=== PATIENT | female | born 1950 | race Caucasian/White ===

== ENCOUNTER 2018-03-09 23:01 | Inpatient (IN) | payer MEDICAID, OTHER ==
[2018-03-09] MEDS: ACETAMINOPHEN 325 MG TAB PO
[2018-03-09] MEDS: IPRATROPIUM (NEB) 0.5 MG/2.5 ML AMP NEB (23:29)
[2018-03-09] MEDS: ALBUTEROL 0.083% (NEB) 2.5 MG/3 ML AMP NEB (23:29)
[2018-03-09 23:43] LABS: AADO2 Arterial 231.5 mmHg (7.0-24.0); Allen Test ACCEPTAB; Arterial Base Excess 0 mmol/L (-3.0-3); Arterial Blood Gas Oxygen Sat 93.9 mmHG (95.0-98.0); Arterial COHb 0.6 % (0.0-3.0); Arterial HCO3 27.9 mmol/L (22.0-26.0); Arterial MetHb 0.4 % (0.0-1.5); Arterial Total Hemglobin 14.2 g/dl (12.0-18.0); Arterial pCO2 59.7 mmhg (35-45); MODE MASK - SIMPLE; Site Left Radial
[2018-03-09 23:55] LABS: ADD UMIC YES; UR ASCORBIC ACID NEGATIVE (NEGATIVE); UR BILIRUBIN (Dip) NEGATIVE (NEGATIVE); UR BLOOD (Dip) NEGATIVE (NEGATIVE); UR CLARITY CLEAR (CLEAR); UR COLOR COLORLESS (YELLOW); UR GLUCOSE (Dip) 3+ mg/dL (NEGATIVE); UR KETONES (Dip) NEGATIVE (NEGATIVE); UR LEUKOCYTE ESTERASE (Dip) NEGATIVE Leu/ul (NEGATIVE); UR NITRITE (Dip) NEGATIVE (NEGATIVE); UR RBC 0 /HPF (0-5); UR SPECIFIC GRAVITY (Dip) 1.006 (1.003-1.030); UR TOTAL PROTEIN (Dip) 2+ mg/dl (NEGATIVE); UR UROBILINOGEN (Dip) NEGATIVE (NEGATIVE); UR WBC 1 /HPF (0-5)
[2018-03-09 23:59] LABS: ADD MAN DIFF? NO
[2018-03-10 00:02] LABS: WHITE BLOOD COUNT 17.2 10^3/ul (4.8-10.8)
[2018-03-10 00:02] LABS: BASOPHIL # 0.1 10^3/ul (0.0-0.1); BASOPHILS % 0.3 % (0.0-2.0); EOSINOPHILS # 0.2 10^3/ul (0.0-0.5); EOSINOPHILS % 0.9 % (0.0-7.0); HEMATOCRIT 41.2 % (37.0-47.0); HEMOGLOBIN 13.5 g/dl (12.0-16.0); LYMPHOCYTES # 3.2 10^3/ul (0.8-2.9); LYMPHOCYTES % 18.4 % (15.0-51.0); MEAN CORPUSCULAR HEMOGLOBIN 30.9 pg (29.0-33.0); MEAN CORPUSCULAR HGB CONC 32.8 g/dl (32.0-37.0); MEAN CORPUSCULAR VOLUME 94.3 fl (82.0-101.0); MEAN PLATELET VOLUME 10.5 fl (7.4-10.4); MONOCYTE # 0.7 10^3/ul (0.3-0.9); MONOCYTES % 3.9 % (0.0-11.0); NEUTROPHILS % 75.7 % (39.0-77.0); PLATELET COUNT 288 10^3/UL (140-415); RED BLOOD COUNT 4.37 10^6/ul (4.20-5.40); RED CELL DISTRIBUTION WIDTH 14.5 % (11.5-14.5)
[2018-03-10 00:21] LABS: ALANINE AMINOTRANSFERASE 118 IU/L (13-69); ALBUMIN 4.5 g/dl (3.3-4.9); ALBUMIN/GLOBULIN RATIO 1.09; ALKALINE PHOSPHATASE 128 IU/L (42-121); ANION GAP 13 (8-16); ASPARTATE AMINO TRANSFERASE 121 IU/L (15-46); BILIRUBIN,INDIRECT 0.8 mg/dl (0-1.1); BILIRUBIN,TOTAL 0.8 mg/dl (0.2-1.3); BLOOD UREA NITROGEN 17 mg/dl (7-20); CALCIUM 8.8 mg/dl (8.4-10.2); CARBON DIOXIDE 36 mmol/L (21-31); CHLORIDE 101 mmol/L (97-110); CREATININE 0.69 mg/dl (0.44-1.00); GLUCOSE 232 mg/dl (70-220); LIPASE 49 U/L (23-300); POTASSIUM 3.7 mmol/L (3.5-5.1); SODIUM 146 mmol/L (135-144); TOTAL PROTEIN 8.6 g/dl (6.1-8.1)
[2018-03-10 00:29] LABS: INR 0.89; PARTIAL THROMBOPLASTIN TIME 30.6 Sec (25.0-35.0); PROTIME 12.1 Sec (11.9-14.9); PT RATIO 0.9
[2018-03-10 00:32] LABS: TROPONIN-I < 0.012 ng/ml (0.000-0.120)
[2018-03-10] MEDS: CEFEPIME 2GM/50 ML (PMX) 50 ML IVPB (01:16)
[2018-03-10] MEDS: SODIUM CHLORIDE 0.9% 1L BAG IV* (01:17)
[2018-03-10] MEDS: FUROSEMIDE 40 MG INJ IV ×2 (01:27→08:25)
[2018-03-10] MEDS: VANCOMYCIN 1 GM (PMX) 250 ML IVPB (02:07)
[2018-03-10] MEDS ORDERED: NITROGLYCERIN (SL) 0.4 MG TAB SL (06:00)
[2018-03-10] MEDS ORDERED: GLUCOSE GEL 15 GRAM TUBE BUCCAL (06:00)
[2018-03-10] MEDS ORDERED: GLUCOSE GEL 15 GRAM TUBE PO ×2 (06:00)
[2018-03-10] MEDS ORDERED: morphine 2 MG INJ IV (06:00)
[2018-03-10] MEDS ORDERED: NACL 0.9% 3 ML SYG IV (06:00)
[2018-03-10] MEDS ORDERED: ALBUTEROL/IPRATROPIUM (NEB) 3 ML AMP HHN (06:00)
[2018-03-10] MEDS ORDERED: GLUCAGON 1 MG INJ IM (06:00)
[2018-03-10] MEDS ORDERED: DEXTROSE 50% 50 ML SYRINGE IV ×2 (06:00)
[2018-03-10 06:17] LABS: LACTIC ACID 1.1 mmol/L (0.5-2.0)
[2018-03-10 06:32] LABS: ADD MAN DIFF? NO
[2018-03-10 06:34] LABS: BASOPHILS % 0.3 % (0.0-2.0); HEMATOCRIT 32.5 % (37.0-47.0); HEMOGLOBIN 10.6 g/dl (12.0-16.0); LYMPHOCYTES # 0.8 10^3/ul (0.8-2.9); LYMPHOCYTES % 6.6 % (15.0-51.0); MEAN CORPUSCULAR HEMOGLOBIN 30.8 pg (29.0-33.0); MEAN CORPUSCULAR HGB CONC 32.6 g/dl (32.0-37.0); MEAN CORPUSCULAR VOLUME 94.5 fl (82.0-101.0); MEAN PLATELET VOLUME 10.3 fl (7.4-10.4); MONOCYTE # 0.6 10^3/ul (0.3-0.9); MONOCYTES % 4.9 % (0.0-11.0); NEUTROPHIL # 10.7 10^3/ul (1.6-7.5); NEUTROPHILS % 87.7 % (39.0-77.0); PLATELET COUNT 227 10^3/UL (140-415); RED BLOOD COUNT 3.44 10^6/ul (4.20-5.40); RED CELL DISTRIBUTION WIDTH 14.6 % (11.5-14.5)
[2018-03-10 06:34] LABS: WHITE BLOOD COUNT 12.2 10^3/ul (4.8-10.8)
[2018-03-10 06:57] LABS: ALANINE AMINOTRANSFERASE 116 IU/L (13-69); ALBUMIN 3.4 g/dl (3.3-4.9); ALBUMIN/GLOBULIN RATIO 1.09; ALKALINE PHOSPHATASE 95 IU/L (42-121); ANION GAP 12 (8-16); ASPARTATE AMINO TRANSFERASE 110 IU/L (15-46); BILIRUBIN,INDIRECT 0.8 mg/dl (0-1.1); BILIRUBIN,TOTAL 0.8 mg/dl (0.2-1.3); BLOOD UREA NITROGEN 19 mg/dl (7-20); CALCIUM 7.8 mg/dl (8.4-10.2); CARBON DIOXIDE 34 mmol/L (21-31); CHLORIDE 102 mmol/L (97-110); CREATININE 0.72 mg/dl (0.44-1.00); GLUCOSE 182 mg/dl (70-220); POTASSIUM 3.4 mmol/L (3.5-5.1); SODIUM 145 mmol/L (135-144); TOTAL PROTEIN 6.5 g/dl (6.1-8.1)
[2018-03-10 07:21] LABS: HEPATITIS B SURFACE ANTIGEN NEGATIVE (NEGATIVE)
[2018-03-10 07:43] LABS: HEPATITIS C VIRAL ANTIBODY NEGATIVE (NEGATIVE)
[2018-03-10] MEDS: LEVOFLOXACIN 500MG/D5W (PMX) 100 ML IVPB (08:24)
[2018-03-10] MEDS: metFORMIN 500 MG TAB PO ×2 (08:25→19:32)
[2018-03-10] MEDS: LOSARTAN 50 MG TAB PO (08:26)
[2018-03-10] MEDS: ATENOLOL 100 MG TAB PO ×2 (08:26→10:11)
[2018-03-10] MEDS: ENOXAPARIN 40 MG/0.4 ML SYG SC (08:40)
[2018-03-10] MEDS: DICLOFENAC (EC) 25 MG TAB PO ×2 (09:14→20:52)
[2018-03-10 09:43] LABS: AADO2 Arterial 45.6 mmHg (7.0-24.0); Allen Test ACCEPTAB; Arterial Base Excess 4.9 mmol/L (-3.0-3); Arterial Blood Gas Oxygen Sat 97.1 mmHG (95.0-98.0); Arterial COHb 0.1 % (0.0-3.0); Arterial Fraction of Oxyhgb 96.7 % (93.0-99.0); Arterial HCO3 29.9 mmol/L (22.0-26.0); Arterial MetHb 0.3 % (0.0-1.5); Arterial Total Hemglobin 12.1 g/dl (12.0-18.0); Arterial pCO2 45.8 mmhg (35-45); MODE NASAL CANNULA; Site Right Radial
[2018-03-10 10:56] LABS: HEPATITIS B SURFACE ANTIBODY NEGATIVE (NEGATIVE)
[2018-03-10] MEDS: hydrALAzine 20 MG INJ IV ×2 (12:53→18:56)
[2018-03-10] MEDS: ACETAMINOPHEN 325 MG TAB PO (14:42)
[2018-03-11 07:35] LABS: ADD MAN DIFF? NO
[2018-03-11 07:40] LABS: BASOPHILS % 0.3 % (0.0-2.0); EOSINOPHILS # 0.1 10^3/ul (0.0-0.5); EOSINOPHILS % 1.3 % (0.0-7.0); HEMATOCRIT 32.3 % (37.0-47.0); HEMOGLOBIN 10.4 g/dl (12.0-16.0); LYMPHOCYTES # 1.4 10^3/ul (0.8-2.9); LYMPHOCYTES % 14.2 % (15.0-51.0); MEAN CORPUSCULAR HEMOGLOBIN 30.5 pg (29.0-33.0); MEAN CORPUSCULAR HGB CONC 32.2 g/dl (32.0-37.0); MEAN CORPUSCULAR VOLUME 94.7 fl (82.0-101.0); MEAN PLATELET VOLUME 10.6 fl (7.4-10.4); MONOCYTE # 0.4 10^3/ul (0.3-0.9); MONOCYTES % 4.4 % (0.0-11.0); NEUTROPHIL # 7.6 10^3/ul (1.6-7.5); NEUTROPHILS % 79.4 % (39.0-77.0); PLATELET COUNT 234 10^3/UL (140-415); RED BLOOD COUNT 3.41 10^6/ul (4.20-5.40); RED CELL DISTRIBUTION WIDTH 14.5 % (11.5-14.5)
[2018-03-11 07:40] LABS: WHITE BLOOD COUNT 9.5 10^3/ul (4.8-10.8)
[2018-03-11 08:49] LABS: ALANINE AMINOTRANSFERASE 88 IU/L (13-69); ALBUMIN 3.3 g/dl (3.3-4.9); ALKALINE PHOSPHATASE 86 IU/L (42-121); ANION GAP 11 (8-16); ASPARTATE AMINO TRANSFERASE 57 IU/L (15-46); BILIRUBIN,INDIRECT 1.3 mg/dl (0-1.1); BILIRUBIN,TOTAL 1.3 mg/dl (0.2-1.3); BLOOD UREA NITROGEN 26 mg/dl (7-20); CALCIUM 7.9 mg/dl (8.4-10.2); CARBON DIOXIDE 36 mmol/L (21-31); CHLORIDE 100 mmol/L (97-110); CREATININE 0.82 mg/dl (0.44-1.00); GLUCOSE 106 mg/dl (70-220); MAGNESIUM 1.7 mg/dl (1.7-2.5); POTASSIUM 3.6 mmol/L (3.5-5.1); SODIUM 143 mmol/L (135-144); TOTAL PROTEIN 6.6 g/dl (6.1-8.1)
[2018-03-11] MEDS: ATENOLOL 100 MG TAB PO (09:00)
[2018-03-11] MEDS: DICLOFENAC (EC) 25 MG TAB PO ×2 (09:00→20:32)
[2018-03-11] MEDS: LEVOFLOXACIN 500MG/D5W (PMX) 100 ML IVPB (09:20)
[2018-03-11] MEDS: metFORMIN 500 MG TAB PO ×2 (09:21→17:23)
[2018-03-11] MEDS: LOSARTAN 50 MG TAB PO (09:21)
[2018-03-11] MEDS: FUROSEMIDE 40 MG INJ IV (09:21)
[2018-03-11] MEDS: ENOXAPARIN 40 MG/0.4 ML SYG SC (09:24)
[2018-03-11] MEDS: hydrALAzine 20 MG INJ IV ×2 (13:13→22:09)
[2018-03-12 07:38] LABS: ALANINE AMINOTRANSFERASE 74 IU/L (13-69); ALBUMIN 3.8 g/dl (3.3-4.9); ALKALINE PHOSPHATASE 103 IU/L (42-121); ANION GAP 15 (8-16); ASPARTATE AMINO TRANSFERASE 56 IU/L (15-46); BILIRUBIN,INDIRECT 1.1 mg/dl (0-1.1); BILIRUBIN,TOTAL 1.1 mg/dl (0.2-1.3); BLOOD UREA NITROGEN 35 mg/dl (7-20); CALCIUM 8.4 mg/dl (8.4-10.2); CARBON DIOXIDE 34 mmol/L (21-31); CHLORIDE 96 mmol/L (97-110); CREATININE 0.87 mg/dl (0.44-1.00); GLUCOSE 115 mg/dl (70-220); SODIUM 141 mmol/L (135-144); TOTAL PROTEIN 7.6 g/dl (6.1-8.1)
[2018-03-12 08:00] LABS: CANCER ANTIGEN 19-9 9.3 U/ml (0.0-37.0)
[2018-03-12] MEDS: metFORMIN 500 MG TAB PO ×2 (08:28→17:32)
[2018-03-12] MEDS: DICLOFENAC (EC) 25 MG TAB PO ×2 (08:29→20:30)
[2018-03-12] MEDS: ATENOLOL 100 MG TAB PO (08:30)
[2018-03-12] MEDS: LEVOFLOXACIN 500MG/D5W (PMX) 100 ML IVPB (08:30)
[2018-03-12] MEDS: LOSARTAN 50 MG TAB PO (08:32)
[2018-03-12] MEDS: FUROSEMIDE 40 MG INJ IV (08:33)
[2018-03-12] MEDS: ENOXAPARIN 40 MG/0.4 ML SYG SC (08:42)
[2018-03-12 14:01] LABS: ANA SCREEN NEGATIVE (NEGATIVE)
[2018-03-12] MEDS: hydrALAzine 20 MG INJ IV ×2 (15:49→22:24)
[2018-03-12 17:47] LABS: MITOCHONDRIAL TB NEGATIVE (NEGATIVE); SMOOTH MUSCLE AB SCREEN POSITIVE (NEGATIVE); SMOOTH MUSCLE AB TITER 1:40 titer (<1:20)
[2018-03-13] MEDS: LEVOFLOXACIN 500 MG TAB PO (06:19)
[2018-03-13 07:09] LABS: ALANINE AMINOTRANSFERASE 57 IU/L (13-69); ALBUMIN 3.5 g/dl (3.3-4.9); ALKALINE PHOSPHATASE 99 IU/L (42-121); ANION GAP 10 (8-16); ASPARTATE AMINO TRANSFERASE 28 IU/L (15-46); BILIRUBIN,INDIRECT 0.7 mg/dl (0-1.1); BILIRUBIN,TOTAL 0.7 mg/dl (0.2-1.3); BLOOD UREA NITROGEN 28 mg/dl (7-20); CALCIUM 8.5 mg/dl (8.4-10.2); CARBON DIOXIDE 37 mmol/L (21-31); CHLORIDE 98 mmol/L (97-110); CREATININE 0.82 mg/dl (0.44-1.00); GLUCOSE 115 mg/dl (70-220); POTASSIUM 3.7 mmol/L (3.5-5.1); SODIUM 141 mmol/L (135-144)
[2018-03-13] MEDS: DICLOFENAC (EC) 25 MG TAB PO ×2 (08:19→20:18)
[2018-03-13] MEDS: LOSARTAN 50 MG TAB PO (08:19)
[2018-03-13] MEDS: FUROSEMIDE 40 MG INJ IV (08:20)
[2018-03-13] MEDS: metFORMIN 500 MG TAB PO ×2 (08:20→16:55)
[2018-03-13] MEDS: ATENOLOL 100 MG TAB PO (08:21)
[2018-03-13] MEDS: ENOXAPARIN 40 MG/0.4 ML SYG SC (08:27)
[2018-03-13] MEDS: AMLODIPINE 5 MG TAB PO (14:34)
[2018-03-13] MEDS: hydrALAzine 20 MG INJ IV (16:56)
[2018-03-14] MEDS: LEVOFLOXACIN 500 MG TAB PO (06:38)
[2018-03-14 06:58] LABS: ALANINE AMINOTRANSFERASE 55 IU/L (13-69); ALBUMIN 3.5 g/dl (3.3-4.9); ALKALINE PHOSPHATASE 95 IU/L (42-121); ANION GAP 14 (8-16); ASPARTATE AMINO TRANSFERASE 27 IU/L (15-46); BILIRUBIN,INDIRECT 0.4 mg/dl (0-1.1); BILIRUBIN,TOTAL 0.4 mg/dl (0.2-1.3); BLOOD UREA NITROGEN 21 mg/dl (7-20); CALCIUM 8.9 mg/dl (8.4-10.2); CARBON DIOXIDE 34 mmol/L (21-31); CHLORIDE 100 mmol/L (97-110); CREATININE 0.88 mg/dl (0.44-1.00); GLUCOSE 103 mg/dl (70-220); POTASSIUM 3.6 mmol/L (3.5-5.1); SODIUM 144 mmol/L (135-144)
[2018-03-14] MEDS: ATENOLOL 50 MG TAB PO (08:18)
[2018-03-14] MEDS: metFORMIN 500 MG TAB PO ×2 (08:19→17:47)
[2018-03-14] MEDS: DICLOFENAC (EC) 25 MG TAB PO ×3 (08:19→21:54)
[2018-03-14] MEDS: LOSARTAN 50 MG TAB PO (08:19)
[2018-03-14] MEDS: AMLODIPINE 5 MG TAB PO (08:19)
[2018-03-14] MEDS: FUROSEMIDE 40 MG INJ IV (08:20)
[2018-03-14] MEDS: ENOXAPARIN 40 MG/0.4 ML SYG SC (08:29)
[2018-03-14] MEDS: hydrALAzine 20 MG INJ IV (23:07)
[2018-03-15] MEDS: LEVOFLOXACIN 500 MG TAB PO (05:58)
[2018-03-15 07:09] LABS: ALANINE AMINOTRANSFERASE 54 IU/L (13-69); ALBUMIN 3.5 g/dl (3.3-4.9); ALBUMIN/GLOBULIN RATIO 1.02; ALKALINE PHOSPHATASE 83 IU/L (42-121); ANION GAP 14 (8-16); ASPARTATE AMINO TRANSFERASE 49 IU/L (15-46); BILIRUBIN,INDIRECT 0.3 mg/dl (0-1.1); BILIRUBIN,TOTAL 0.3 mg/dl (0.2-1.3); BLOOD UREA NITROGEN 20 mg/dl (7-20); CALCIUM 8.7 mg/dl (8.4-10.2); CARBON DIOXIDE 33 mmol/L (21-31); CHLORIDE 100 mmol/L (97-110); CREATININE 0.92 mg/dl (0.44-1.00); GLUCOSE 110 mg/dl (70-220); SODIUM 143 mmol/L (135-144); TOTAL PROTEIN 6.9 g/dl (6.1-8.1)
[2018-03-15 08:04] LABS: MAGNESIUM 1.8 mg/dl (1.7-2.5)
[2018-03-15] MEDS: FUROSEMIDE 40 MG INJ IV (08:17)
[2018-03-15] MEDS: metFORMIN 500 MG TAB PO ×2 (08:17→17:10)
[2018-03-15] MEDS: DICLOFENAC (EC) 25 MG TAB PO ×2 (08:19→20:36)
[2018-03-15] MEDS: ATENOLOL 50 MG TAB PO (08:19)
[2018-03-15] MEDS: AMLODIPINE 5 MG TAB PO (08:19)
[2018-03-15] MEDS: LOSARTAN 50 MG TAB PO (08:20)
[2018-03-15] MEDS: ENOXAPARIN 40 MG/0.4 ML SYG SC (08:27)
[2018-03-15] MEDS: INDOMETHACIN 50 MG SUPP PR (17:30)
[2018-03-16] MEDS: LEVOFLOXACIN 500 MG TAB PO (05:15)
[2018-03-16] MEDS ORDERED: LIDOCAINE 2% (SDV) 5 ML INJ (07:00)
[2018-03-16] MEDS ORDERED: SUCCINYLCHOLINE CHLORIDE 100 MG/5 ML SYG IV ×2 (07:00→18:42)
[2018-03-16] MEDS: DICLOFENAC (EC) 25 MG TAB PO ×2 (07:17→20:35)
[2018-03-16] MEDS: ATENOLOL 50 MG TAB PO (07:17)
[2018-03-16] MEDS: AMLODIPINE 5 MG TAB PO (07:17)
[2018-03-16] MEDS: metFORMIN 500 MG TAB PO ×2 (07:17→17:55)
[2018-03-16] MEDS: ENOXAPARIN 40 MG/0.4 ML SYG SC (07:17)
[2018-03-16] MEDS: LOSARTAN 50 MG TAB PO (07:17)
[2018-03-16 07:35] LABS: ALANINE AMINOTRANSFERASE 69 IU/L (13-69); ALBUMIN 3.7 g/dl (3.3-4.9); ALBUMIN/GLOBULIN RATIO 1.12; ALKALINE PHOSPHATASE 84 IU/L (42-121); ANION GAP 13 (8-16); ASPARTATE AMINO TRANSFERASE 72 IU/L (15-46); BILIRUBIN,INDIRECT 0.3 mg/dl (0-1.1); BILIRUBIN,TOTAL 0.3 mg/dl (0.2-1.3); BLOOD UREA NITROGEN 19 mg/dl (7-20); CARBON DIOXIDE 35 mmol/L (21-31); CHLORIDE 99 mmol/L (97-110); CREATININE 1.02 mg/dl (0.44-1.00); GLUCOSE 96 mg/dl (70-220); POTASSIUM 4.3 mmol/L (3.5-5.1); SODIUM 143 mmol/L (135-144)
[2018-03-16] MEDS: FUROSEMIDE 40 MG INJ IV (07:53)
[2018-03-16] MEDS: hydrALAzine 20 MG INJ IV ×2 (15:26→22:03)
[2018-03-16] MEDS ORDERED: IOHEXOL 300MG/ML 30 ML BTL (16:17)
[2018-03-16] MEDS ORDERED: SUGAMMADEX SODIUM 200 MG/2 ML VIAL IV (18:42)
[2018-03-16] MEDS ORDERED: ROCURONIUM 50 MG INJ (18:42)
[2018-03-16] MEDS ORDERED: PROPOFOL 20 ML (18:42)
[2018-03-16] MEDS: ONDANSETRON 4 MG INJ IV (20:35)
[2018-03-16] MEDS: morphine LIQ (10 MG/5 ML) CUP PO (20:36)
[2018-03-16] MEDS: ACETAMINOPHEN 325 MG TAB PO (22:58)
[2018-03-17] MEDS: LEVOFLOXACIN 500 MG TAB PO (05:26)
[2018-03-17] MEDS: ACETAMINOPHEN 325 MG TAB PO (05:27)
[2018-03-17 07:40] LABS: ADD MAN DIFF? NO
[2018-03-17 07:44] LABS: BASOPHILS % 0.5 % (0.0-2.0); EOSINOPHILS # 0.1 10^3/ul (0.0-0.5); EOSINOPHILS % 0.8 % (0.0-7.0); HEMATOCRIT 35.1 % (37.0-47.0); HEMOGLOBIN 11.6 g/dl (12.0-16.0); LYMPHOCYTES # 1.4 10^3/ul (0.8-2.9); LYMPHOCYTES % 17.1 % (15.0-51.0); MEAN CORPUSCULAR HEMOGLOBIN 30.1 pg (29.0-33.0); MEAN CORPUSCULAR VOLUME 91.2 fl (82.0-101.0); MEAN PLATELET VOLUME 9.6 fl (7.4-10.4); MONOCYTE # 0.7 10^3/ul (0.3-0.9); MONOCYTES % 8.2 % (0.0-11.0); NEUTROPHIL # 6.1 10^3/ul (1.6-7.5); PLATELET COUNT 330 10^3/UL (140-415); RED BLOOD COUNT 3.85 10^6/ul (4.20-5.40); RED CELL DISTRIBUTION WIDTH 14.1 % (11.5-14.5)
[2018-03-17 07:44] LABS: WHITE BLOOD COUNT 8.3 10^3/ul (4.8-10.8)
[2018-03-17 08:05] LABS: ALANINE AMINOTRANSFERASE 88 IU/L (13-69); ALBUMIN 3.7 g/dl (3.3-4.9); ALBUMIN/GLOBULIN RATIO 1.05; ALKALINE PHOSPHATASE 80 IU/L (42-121); ANION GAP 14 (8-16); ASPARTATE AMINO TRANSFERASE 91 IU/L (15-46); BILIRUBIN,INDIRECT 0.3 mg/dl (0-1.1); BILIRUBIN,TOTAL 0.3 mg/dl (0.2-1.3); BLOOD UREA NITROGEN 25 mg/dl (7-20); CALCIUM 8.6 mg/dl (8.4-10.2); CARBON DIOXIDE 32 mmol/L (21-31); CHLORIDE 97 mmol/L (97-110); CREATININE 1.16 mg/dl (0.44-1.00); GLUCOSE 72 mg/dl (70-220); POTASSIUM 3.9 mmol/L (3.5-5.1); SODIUM 139 mmol/L (135-144); TOTAL PROTEIN 7.2 g/dl (6.1-8.1)
[2018-03-17] MEDS: FUROSEMIDE 40 MG INJ IV (08:52)
[2018-03-17] MEDS: DICLOFENAC (EC) 25 MG TAB PO (08:53)
[2018-03-17] MEDS: AMLODIPINE 5 MG TAB PO (08:54)
[2018-03-17] MEDS: ATENOLOL 50 MG TAB PO (08:54)
[2018-03-17] MEDS: LOSARTAN 50 MG TAB PO (08:54)
[2018-03-17] MEDS: metFORMIN 500 MG TAB PO ×2 (08:54→17:22)
[2018-03-17] MEDS: ENOXAPARIN 40 MG/0.4 ML SYG SC (08:56)
[2018-03-17] MEDS: hydrALAzine 20 MG INJ IV (15:24)
== END 2018-03-17 18:20 | disposition home or self-care (01) | DRG 871 ==
LOC: TEL 03-10 02:15 → E/R 23:01
PROC: 0F798DZ Dilation of Common Bile Duct with Intraluminal Device, Via Natural or Artificial Opening Endoscopic (ICD-10-PCS; principal; 2018-03-16 16:00)
PROC: BF10YZZ Fluoroscopy of Bile Ducts using Other Contrast (ICD-10-PCS; 2018-03-16 16:00)
PROC: 5A09357 Assistance with Respiratory Ventilation, Less than 24 Consecutive Hours, Continuous Positive Airway Pressure (ICD-10-PCS; 2018-03-16 17:15)
DX: A41.9 Sepsis, unspecified organism (principal); J96.01 Acute respiratory failure with hypoxia; J18.9 Pneumonia, unspecified organism; J96.02 Acute respiratory failure with hypercapnia; I50.33 Acute on chronic diastolic (congestive) heart failure; K83.1 Obstruction of bile duct; I42.9 Cardiomyopathy, unspecified; E11.9 Type 2 diabetes mellitus without complications; I11.0 Hypertensive heart disease with heart failure; E66.01 Morbid (severe) obesity due to excess calories; Z68.38 Body mass index [BMI] 38.0-38.9, adult
CPT/HCPCS: 36415; 36600; 71045; 74182; 74330; 76705; 80053; 81001; 82787; 82803; 82962; 83605; 83690; 83735; 84484; 85025; 85610; 85730; 86038; 86255; 86301; 86706; 86803; 87040; 87086; 87340; 87400; 88104; 88305; 93005; 94664; 96365; 96366; 96367; 96372; 96375; 96376; 99291-25